=== PATIENT | male | born 2005 | race Caucasian/White ===

== ENCOUNTER 2023-10-20 00:25 | Emergency (ER) | payer OTHER ==
[~2023-10-20] VITALS: Ht 170.2 cm; Wt 76.7 kg
[2023-10-20 00:41] VITALS: BP 123/84; PULSE 67; RESP 16; TEMP 98.5; O2SAT 99
[2023-10-20] MEDS ORDERED: CEPH-588 PO (02:25)
[2023-10-20] MEDS ORDERED: SULF-59 PO (02:25)
[2023-10-20] MEDS: cephALEXin 500 MG CAP PO ONE (02:29)
[2023-10-20] MEDS: SULFAMETH/TRIMETH DS 800/160MG 1 TAB PO ONE (02:29)
[2023-10-20 02:33] VITALS: BP 123/84; PULSE 67; RESP 16; TEMP 98.5; O2SAT 99
== END 2023-10-20 02:33 | disposition home or self-care (01) ==
LOC: MED 00:25
DX: Z48.01 Encounter for change or removal of surgical wound dressing (principal); L05.01 Pilonidal cyst with abscess; Z79.899 Other long term (current) drug therapy
CPT/HCPCS: 99283

== ENCOUNTER 2023-11-27 18:16 | Emergency (ER) | payer OTHER ==
[~2023-11-27] VITALS: Ht 170.2 cm; Wt 63.5 kg
[~2023-11-27 18:16] MED LIST: CEPH-588 PO; SULF-59 PO
[2023-11-27 18:50] VITALS: BP 100/69; PULSE 76; RESP 18; TEMP 98; O2SAT 96
== END 2023-11-27 21:28 | disposition home or self-care (01) ==
LOC: MED 18:16
DX: L05.01 Pilonidal cyst with abscess (principal); Z79.899 Other long term (current) drug therapy
CPT/HCPCS: 10080; 99284